=== PATIENT | female | born 1970 | race Hispanic/Latino ===

== ENCOUNTER 2020-12-16 19:17 | Emergency (ER) | payer BC ==
[2020-12-16 20:04] LABS: BASOPHILS % (AUTO) 0.7 % (0.0-5.0); EOSINOPHILS % (AUTO) 1.2 % (0.0-8.0); HEMATOCRIT 40.4 % (36-48); MEAN CORPUSCULAR HEMOGLOBIN 30.1 pg (27.0-33.0); MEAN CORPUSCULAR HGB CONC 33.4 g/dL (32.0-36.0); MONOCYTES % (AUTO) 5.7 % (3.0-13.0); NEUTROPHILS % (AUTO) 60.1 % (40.0-77.0); PLATELET COUNT (AUTO) 254 K/uL (130-400); RED BLOOD CELL COUNT(AUTO) 4.49 MIL/uL (4.00-5.50); WHITE BLOOD COUNT (AUTO) 10.3 K/uL (4.8-10.8)
[2020-12-16 20:10] LABS: APPEARANCE,URINE Clear (CLEAR); BILIRUBIN,URINE Negative (NEGATIVE); COLOR,URINE Yellow (YELLOW); GLUCOSE, URINE (UA) Negative (NEGATIVE); KETONES,URINE Negative (NEGATIVE); LEUKOCYTE ESTERASE ,URINE Trace (NEGATIVE); NITRATE,URINE Negative (NEGATIVE); OCCULT BLOOD,URINE Trace (NEGATIVE); PH,URINE 5.5 (5.0-8.0); PROTEIN,URINE Negative (NEGATIVE); UROBILINOGEN,URINE 0.2 mg/dL (0.2-1.0)
[2020-12-16 20:13] LABS: HCG,QUAL RESULT NEGATIVE (NEGATIVE)
[2020-12-16 20:18] LABS: CREATININE 0.9 mg/dL (0.5-1.5)
[2020-12-16 20:20] LABS: PROTHROMBIN TIME 10.9 SEC (9.6-11.6)
[2020-12-16 20:21] LABS: PARTIAL THROMBOPLASTIN TIME 29.3 SEC (26.3-35.5)
[2020-12-16 20:22] LABS: ALBUMIN 4.1 g/dL (3.5-5.0); BILIRUBIN,TOTAL 0.3 mg/dL (0.2-1.0); TOTAL PROTEIN, SERUM 8.7 g/dL (6.0-8.3)
[2020-12-16] MEDS ORDERED: IOHEXOL-350 75 ML VIAL IV ONE (20:26)
[2020-12-16 20:41] LABS: BACTERIA,URINE Few /HPF (None Seen); RBC,URINE 0-1 /HPF (0-1); SQUAMOUS EPITHELIAL CELL,UR Rare /HPF (0-2); WBC,URINE 0-1 /HPF (0-1)
[2020-12-16] MEDS ORDERED: KETOROLAC TROMETHAMINE 30MG/ML ONE (21:36)
== END 2020-12-16 21:48 | disposition home or self-care (01) ==
LOC: EDH 19:17
DX: K57.90 Diverticulosis of intestine, part unspecified, without perforation or abscess without bleeding (principal); E88.89 Other specified metabolic disorders; K52.9 Noninfective gastroenteritis and colitis, unspecified; Z20.822 Contact with and (suspected) exposure to COVID-19; F32.9 Major depressive disorder, single episode, unspecified; I10 Essential (primary) hypertension; E78.00 Pure hypercholesterolemia, unspecified
CPT/HCPCS: 36415; 74177; 80053; 81001; 81025; 82270; 83690; 85025; 85610; 85730; 87426; 96374; 99285; J1885; Q9967; U0003

== ENCOUNTER 2023-10-08 11:48 | Day surgery (SDC) | payer BC ==
[2023-10-07 18:09] VITALS: BP 160/90; PULSE 69; RESP 20
[2023-10-08] VITALS (15 sets, daily range): BP systolic 109–155; BP diastolic 59–76; PULSE 72–95; RESP 14–16
[~2023-10-08] VITALS: Ht 154.9 cm; Wt 79.1 kg
[2023-10-08 12:24] LABS: BASOPHILS # (AUTO) 0.08 K/uL (0.00-0.20); BASOPHILS % (AUTO) 1.3 % (0.0-5.0); EOSINOPHILS % (AUTO) 1.6 % (0.0-8.0); HEMATOCRIT 41.4 % (36-48); IMMATURE GRANULOCYTE ABSOLUTE 0.01 K/uL (0-1); LYMPHOCYTES # (AUTO) 2.1 K/uL (1.0-4.8); LYMPHOCYTES % (AUTO) 33.1 % (21.0-51.0); MEAN CORPUSCULAR HEMOGLOBIN 32.3 pg (27.0-33.0); MEAN CORPUSCULAR HGB CONC 33.6 g/dL (32.0-36.0); MEAN CORPUSCULAR VOLUME 96.3 fL (79-99); MONOCYTES # (AUTO) 0.4 K/uL (0.1-1.0); MONOCYTES % (AUTO) 5.8 % (3.0-13.0); NEUTROPHILS # (AUTO) 3.6 K/uL (1.8-7.7); PLATELET COUNT (AUTO) 219 K/uL (130-400); RED CELL DISTRIBUTION WIDTH 13.1 % (11.0-15.5); WHITE BLOOD COUNT (AUTO) 6.3 K/uL (4.8-10.8)
[2023-10-08] MEDS ORDERED: MEROPENEM 1 GM VIAL ONE (12:27)
[2023-10-08] MEDS ORDERED: LACTATED RINGERS 1000ML 1,000 ML IV ONE (12:27)
[2023-10-08 12:37] LABS: INR 0.94 (0.85-1.15); PROTHROMBIN TIME 10.9 SEC (9.6-11.6)
[2023-10-08 12:38] LABS: PARTIAL THROMBOPLASTIN TIME 30.3 SEC (26.3-35.5)
[2023-10-08] MEDS ORDERED: BUPIVACAINE/PF 0.25% 30ML VIAL IJ ONE ×2 (13:11→15:15)
[2023-10-08 13:24] LABS: CREATININE 0.8 mg/dL (0.5-1.5); POTASSIUM 4.7 mmol/L (3.5-5.1)
[2023-10-08 13:29] LABS: ALBUMIN 3.8 g/dL (3.5-5.0); BILIRUBIN,TOTAL 0.7 mg/dL (0.2-1.0); TOTAL PROTEIN, SERUM 7.7 g/dL (6.0-8.3)
[2023-10-08] MEDS ORDERED: LIDOCAINE 1%-EPI 1:100,000 20 ML VIAL ONE (13:29)
[2023-10-08] MEDS ORDERED: MIRA50TA PO (13:34)
[2023-10-08] MEDS ORDERED: ESCI20TA38 PO (13:34)
[2023-10-08] MEDS ORDERED: METO5TAB2 PO (13:34)
[2023-10-08] MEDS ORDERED: ROSU20TA73 PO (13:34)
[2023-10-08] MEDS ORDERED: SUCR1TAB2 PO (13:34)
[2023-10-08] MEDS ORDERED: AMLO-257 PO ×2 (13:34)
[2023-10-08] MEDS ORDERED: OLME40TA18 PO (13:34)
[2023-10-08] MEDS ORDERED: LIDOCAINE PF 100MG/5ML (2%) SYRINGE 5ML ONE (14:49)
[2023-10-08] MEDS ORDERED: MIDAZOLAM HCL 1 MG/ML 2ML VIAL ONE (14:50)
[2023-10-08] MEDS ORDERED: PROPOFOL 10 MG/ML 20ML VIAL IV ONE (14:50)
[2023-10-08] MEDS ORDERED: FENTANYL CITRATE PF 50 MCG/1 ML 2ML VIAL ONE (14:58)
[2023-10-08] MEDS ORDERED: ONDANSETRON 4MG INJ ONE (14:58)
[2023-10-08] MEDS ORDERED: DEXAMETHASONE SOD PHOSPHATE 10MG/ML 1ML VIAL ONE (14:59)
[2023-10-08] MEDS ORDERED: KETOROLAC 30MG VIAL (30MG/ML) ONE (15:09)
[2023-10-08] MEDS ORDERED: MEROPENEM 1 GM VIAL IVPB ONE (15:10)
[2023-10-08] MEDS ORDERED: LIDOCAINE 1%-EPI 1:100,000 20 ML VIAL IJ ONE (15:15)
== END 2023-10-08 17:05 | disposition home or self-care (01) ==
LOC: DAH 11:48
PROVIDERS: ATTEND Surgery
DX: K60.1 Chronic anal fissure (principal); K62.89 Other specified diseases of anus and rectum; L29.0 Pruritus ani; I10 Essential (primary) hypertension; E78.5 Hyperlipidemia, unspecified; F41.9 Anxiety disorder, unspecified; F32.A Depression, unspecified; K21.9 Gastro-esophageal reflux disease without esophagitis; Z79.01 Long term (current) use of anticoagulants; Z79.899 Other long term (current) drug therapy; Z98.891 History of uterine scar from previous surgery; Z98.890 Other specified postprocedural states; Z72.89 Other problems related to lifestyle
CPT/HCPCS: 93005; 46200; 80053; 85025; 85610; 85730; 81025; 36415; A4663; J7120 ×2; J3010; J3490 ×2; J1100; J0665 ×2; J2001; J2250; J2704; J2405; J1885; J2185 ×2; A4649; A4930; A4215; A4223; A4222; A4221